=== PATIENT | male | born 1965 | race African-American/Black ===

== ENCOUNTER 2021-06-11 09:41 | Emergency (ER) | payer MEDICAID ==
[~2021-06-11] VITALS: Ht 172.7 cm; Wt 78.0 kg
[2021-06-11 12:03] LABS: BASOPHILS % 0.8 % (0.0-2.0); EOSINOPHILS % 2.3 % (0.0-5.0); HEMATOCRIT. 47.9 % (42.0-52.0); HEMOGLOBIN. 16.4 g/dL (14.0-18.0); LYMPHOCYTES % 24.9 % (20.0-50.0); MEAN CORPUSCULAR HEMOGLOBIN 30.4 pg (28.0-32.0); MEAN CORPUSCULAR VOLUME 88.8 fL (80.0-94.0); MEAN PLATELET VOLUME 9.9 fl (7.4-10.4); MONOCYTES % 5.1 % (2.0-8.0); NEUTROPHILS % 66.9 % (40.0-76.0); PLATELET 218 x1000/uL (130-400); RED CELL DISTRIBUTION WIDTH 13.2 % (11.6-14.6)
[2021-06-11 12:11] LABS: CHLORIDE 109 mEq/L (98-107)
[2021-06-11] MEDS ORDERED: AMLO5TAB88 MT (13:00)
[2021-06-11 13:26] VITALS: BP 155/99
== END 2021-06-11 13:32 | disposition home or self-care (01) ==
LOC: ER 11:51
DX: H81.399 Other peripheral vertigo, unspecified ear (principal); R11.0 Nausea; I10 Essential (primary) hypertension
CPT/HCPCS: 36415; 71045; 80053; 83880; 84484; 85025; 99284